=== PATIENT | male | born 2000 | race Caucasian/White ===

== ENCOUNTER 2024-08-18 18:00 | Emergency (ER) | payer SELFPAY ==
[2024-08-18 18:12] VITALS: PULSE 92; TEMP 37.4; O2SAT 99
[2024-08-18 18:16] VITALS: BP 139/91; RESP 16; O2SAT 97
--- NOTE | 2024-08-18 18:19 | XRR_ITS ---
PROCEDURE INFORMATION: Exam: XR Left Wrist Exam date and time: 08/18/2024 6:23 PM Age: 24 years old Clinical indication: Left; Patient HX: Lt wrist pain/swelling post fall TECHNIQUE: Imaging protocol: Radiologic exam of the left wrist. Views: 3 or more views. COMPARISON: CR (UP EX, ) 08/18/2024 6:23 PM FINDINGS: Bones/joints: There is a nondisplaced fracture through the waist of the scaphoid bone with adjacent soft tissue edema. Soft tissues: See Bones/joints finding. XR/XR wrist LT min 3V* [id number] IMPRESSION: There is a nondisplaced fracture through the waist of the scaphoid bone with adjacent soft tissue edema.
--- NOTE | 2024-08-18 18:19 | XRR_ITS ---
PROCEDURE INFORMATION: Exam: XR Left Elbow Exam date and time: 08/18/2024 6:23 PM Age: 24 years old Clinical indication: Pain; Elbow; Left; Additional info: Lt elbow pain post fall. TECHNIQUE: Imaging protocol: Radiologic exam of the left elbow. Views: 3 or more views. COMPARISON: CR (UP EX, ) 08/18/2024 6:23 PM FINDINGS: Bones/joints: Normal. Soft tissues: Normal. XR/XR elbow LT min 3V* [id number] IMPRESSION: No acute findings.
--- NOTE | 2024-08-18 18:20 | W.ED.EXTPRO ---
HPI - Extremity Problem General: Chief complaint: Extremity Injury, Upper Stated complaint: Left wrist injury into arm Time Seen by Provider: 08/18/24 18:17 History of Present Illness: 24-year-old male patient comes in today for injury to the left upper extremity. Patient reports falling off a ladder approximately 3 to 4 foot and landing on his left arm. Patient reports pain to his left wrist and elbow region of his arm. Patient reports pain shoots from the wrist up into the elbow. Patient moves all extremities. Patient does have guarded movement of the left wrist. Related Data Allergies Allergy/AdvReac Type Severity Reaction Status Date / Time No Known Allergies Allergy Verified 08/18/24 18:16 Review of Systems General: Reports: 10 or more systems reviewed and unremarkable except in HPI and below Physical Exam Const: COMMON NORMALS: alert HENMT: COMMON NORMALS: normocephalic HEAD & SCALP: normocephalic Neck/C-Spine: COMMON NORMALS: full ROM Resp: COMMON NORMALS: normal respiratory effort and clear to auscultation bilaterally AUSCULTATION: clear to auscultation bilaterally Cardio: COMMON NORMALS: regular rate RATE: regular rate Back/Pelvis: COMMON NORMALS: thoracic and lumbar spine normal to inspection Extremity: LEFT UPPER EXTREMITY: Yes elbow joint (Mild tenderness no swelling normal range of motion) Left elbow: Yes inspection, Yes palpation, Yes ROM and Yes neurovascular exam and Yes wrist (Joint line wrist pain with mild swelling) Left wrist: Yes inspection, Yes palpation, Yes ROM (Decreased range of motion due to pain) and Yes neurovascular exam (Shooting pain into the fourth and fifth digit) Neuro: SENSORIUM/ORIENTATION: Yes alert Skin: COMMON NORMALS: turgor normal GENERAL SKIN EXAM: turgor normal Course Vital Signs: Vital signs: Vital Signs Temperature 99.4 F 08/18/24 18:12 Pulse Rate 92 08/18/24 18:12 Respiratory Rate 16 08/18/24 18:16 Blood Pressure 139/91 08/18/24 18:16 Pulse Oximetry 97 08/18/24 18:16 Oxygen Delivery Me thod Room Air 08/18/24 18:16 MDM - Extremity (Nontraumatic) Medical Decision Making 24-year-old male patient comes in today for complaints of injury to the left upper extremity. On exam patient has tenderness to the joint line of the left wrist. Patient also has some tenderness to the left elbow. Mild swelling is noted to the wrist, no obvious swelling to the elbow. Pulses and sensation are intact distally. Differential diagnosis includes sprain, fracture, dislocation. X-ray wet read notes a probable waist scaphoid fracture of the left wrist. X-ray of the right elbow notes no abnormality. Patient was placed in a radial gutter splint with recommendations to follow-up with correctional casework specialist. Patient and family both reported understanding. XR interpretation done by ED provider, pending radiology final review Discharge Plan Discharge Condition: Stable Coding Level of Care Code ED Environmental Services Floor Tech for Marah Nicholas
[2024-08-18 19:47] VITALS: BP 147/94; PULSE 83; RESP 16; O2SAT 95
--- NOTE | 2024-08-19 08:13 | DCPLANNER ---
messaged ortho for er f/u
== END 2024-08-18 19:52 | disposition home or self-care (01) ==
PROVIDERS: Emergency Provider Nurse Practitioner Family
DX: S69.92XA Unspecified injury of left wrist, hand and finger(s), initial encounter (principal); W11.XXXA Fall on and from ladder, initial encounter
CPT/HCPCS: 29125; 73080; 73110; 99283

== ENCOUNTER → 2024-08-21 15:44 | Outpatient (BNVA) | payer SELFPAY | PROVIDERS: Visit Provider Specialist | DX: S62.102A Fracture of unspecified carpal bone, left wrist, initial encounter for closed fracture (principal); S62.025A Nondisplaced fracture of middle third of navicular [scaphoid] bone of left wrist, initial encounter for closed fracture; W11.XXXA Fall on and from ladder, initial encounter | CPT/HCPCS: 73110 ==

== ENCOUNTER 2024-08-21 17:18 | Outpatient (CLI) | payer SELFPAY | END 2024-08-21 17:19 | disposition home or self-care (01) | LOC: SPT 17:19 | PROVIDERS: Visit Provider Specialist | DX: Z46.89 Encounter for fitting and adjustment of other specified devices (principal); S62.002D Unspecified fracture of navicular [scaphoid] bone of left wrist, subsequent encounter for fracture with routine healing; X58.XXXD Exposure to other specified factors, subsequent encounter | CPT/HCPCS: L3984 ==

== ENCOUNTER → 2024-09-04 15:54 | Outpatient (BNVA) | payer SELFPAY | PROVIDERS: Visit Provider Specialist | DX: S62.025A Nondisplaced fracture of middle third of navicular [scaphoid] bone of left wrist, initial encounter for closed fracture; X58.XXXA Exposure to other specified factors, initial encounter | CPT/HCPCS: 73110 ==

== ENCOUNTER → 2024-09-18 15:37 | Outpatient (BNVA) | payer SELFPAY | PROVIDERS: Visit Provider Specialist | DX: S62.025D Nondisplaced fracture of middle third of navicular [scaphoid] bone of left wrist, subsequent encounter for fracture with routine healing; X58.XXXD Exposure to other specified factors, subsequent encounter | CPT/HCPCS: 73110 ==

== ENCOUNTER → 2024-10-16 16:02 | Outpatient (BNVA) | payer SELFPAY | PROVIDERS: Visit Provider Specialist | DX: S62.025D Nondisplaced fracture of middle third of navicular [scaphoid] bone of left wrist, subsequent encounter for fracture with routine healing (principal); X58.XXXD Exposure to other specified factors, subsequent encounter | CPT/HCPCS: 73110 ==